=== PATIENT | male | born 1940 | race Caucasian/White ===

== ENCOUNTER 2018-05-18 14:33 | Outpatient (CLI) | payer BC ==
[~2018-05-18 14:33] MED LIST: Gadobenate Dimeglumine 529 MG/1 ML (20ML VIAL) ONE
--- NOTE | 2018-05-19 14:47 | MRI ---
MRI OF THE PELVIS WITH AND WITHOUT IV CONTRAST: INDICATION: History of elevated PSA without prior history of prostatic biopsy. TECHNIQUE: Multiplanar, multisequence MR images were obtained of the pelvis with and without contrast utilizing 16 cc of MultiHance. A prostate cancer specific protocol was utilized on a 3 [facility]anna magnet at [facility]. The examination was interpreted on a separate [facility] [employer] work [facility] for multiparametric valorie luation. FINDINGS: The prostate measures 5.2 x 5.2 x 4.5 cm giving an estimated prostatic volume of 63.27 cc. There is a focal region of diminished T2 signal intensity with associated restricted diffusion and an abnormal contrast enhancement involving the left prostatic apex measuring 1.3 cm. This is best seen on image 19 of series 6 and image 14 of series 7 and image 14 of series 8. No additional suspicious area of restricted diffusion is evident within the peripheral zone. No defi nite abnormal T2 signal abnormality is seen within the central transitional zone. There are multiple BPH nodules seen centrally and protruding into the base of the bladder. The visualized seminal vesi cles are normal-appearing. There are no overt changes to suggest neurovascular involvement. No path ologically enlarged lymph nodes are evident. There are bilateral fat-containing inguinal hernias. N o bone marrow signal abnormality is demonstrated. IMPRESSION: 1. PIRADS category 4 - high (clinically significant cancer is likely to be present). 2. There is a focal region of restricted diffusion with abnormal dynamic contrast enhancement involv ing the left apex of the prostate suspicious for clinically significant cancer. 3. No overt evidence to suggest the presence of neurovascular invasion or regional metastatic diseas e. POS: [facility]
== END 2018-05-18 14:34 | disposition home or self-care (01) ==
LOC: TBSIIMAG 14:33
PROVIDERS: ATTEND Urology
DX: R97.20 Elevated prostate specific antigen [PSA] (principal)
CPT/HCPCS: 72197; 82565; A9577

== ENCOUNTER 2018-08-07 02:52 | Outpatient (CLI) | payer BC ==
[2018-08-07 11:18] LABS: Hemoglobin 15.7 g/dL (14.0-18.0); Mean Corpuscular HGB CONC 32.9 g/dL (32.0-36.0); Mean Corpuscular Hemoglobin 32.1 pg (27.0-31.0); Mean Corpuscular Volume 97.5 fL (78.0-98.0); Mean Platelet Volume 8.2 fL (7.4-10.4); Platelet Count 183 thou/uL (130-400); RBC Distribution Width 12.2 % (11.5-14.5); White Blood Cell (WBC) Count 6.7 thou/uL (4.8-10.8)
[2018-08-07 11:21] LABS: Prothrombin Time 12.9 SEC (12.0-14.7)
[2018-08-07 11:35] LABS: Anion Gap 11 mmol/L (10-20); BUN (Urea Nitrogen) 16 mg/dL (8.4-25.7); Calc. Creatinine Clearance 0 mL/min (70-130); Carbon Dioxide 27 mmol/L (23-31); Chloride 103 mmol/L (98-107); Estimated GFR-MDRD 70; Glucose 86 mg/dL (83-110); Sodium 137 mmol/L (136-145)
[2018-08-07 11:45] LABS: Bilirubin Negative (Negative); Blood, Urine Negative (Negative); Clarity CLEAR (Clear); Glucose, Urine (Dipstick) Negative (Negative); Leukocyte Negative (Negative); Nitrite Negative (Negative); Protein, Urine (Dipstick) Negative (Neg-Trace); Specific Gravity, Urine 1.009 (1.002-1.036); Urobilinogen 0.2 mg/dL (0.2-1.0); pH, Urine 5.5 (5.0-9.0)
[2018-08-07 11:50] LABS: Bacteria/HPF None Seen HPF (None Seen); Hyaline Casts/LPF 0-3 HYALINE CAST LPF (0-3 Hyaline); RBC/HPF 0-3 HPF (0-3); Squamous Epithelial None Seen HPF (0-3); WBC/HPF None Seen HPF (0-3)
== END 2018-08-07 02:53 | disposition home or self-care (01) ==
LOC: LABBT 02:52
PROVIDERS: ATTEND Urology
DX: Z01.818 Encounter for other preprocedural examination (principal); R97.20 Elevated prostate specific antigen [PSA]; N40.1 Benign prostatic hyperplasia with lower urinary tract symptoms; R39.12 Poor urinary stream
CPT/HCPCS: 80048; 81001; 85027; 85610; 85730; 87086; 93005; 93010

== ENCOUNTER 2018-08-10 08:29 | Outpatient (CLI) | payer BC | END 2018-08-10 08:30 | disposition home or self-care (01) | LOC: TBSIIMAG 08:29 | PROVIDERS: ATTEND Urology | DX: Z53.9 Procedure and treatment not carried out, unspecified reason (principal) | CPT/HCPCS: 72197; A9577 ==

== ENCOUNTER 2018-08-13 05:59 | Day surgery (SDC) | payer BC ==
[2018-08-07 10:23] VITALS: BMI 25.2
[2018-08-13] MEDS ORDERED: Fentanyl 100 MCG/2 ML VIAL ONE (06:32)
[2018-08-13] MEDS ORDERED: cefTRIAXone\\ROCEPHIN 1 GM VIAL ONE (06:46)
[2018-08-13] MEDS ORDERED: Sodium Chloride 0.9% 100 ML ONE (06:46)
[2018-08-13] MEDS ORDERED: Midazolam HCl 2 mg/2 ml Vial ONE (06:52)
[2018-08-13] MEDS ORDERED: Ketamine 50 MG/ML (10ML VIAL) ONE (06:53)
[2018-08-13] MEDS ORDERED: Propofol 500 MG/50 ML VIAL ONE (06:53)
--- NOTE | 2018-08-13 12:33 | OP ---
DATE OF PROCEDURE: 08/13/2018 SERVICE: Urology. PREOPERATIVE DIAGNOSIS: Elevated PSA. POSTOPERATIVE DIAGNOSIS: Elevated PSA. PROCEDURE PERFORMED: MRI fusion biopsy. INDICATION FOR PROCEDURE: Mr. Fisher is a 77-year-old white male, who presented with an elevated PSA up to 16. He underwent an MRI, which demonstrated a BI-RADS 4 lesion at the left apex. After discussion of risks and benefits, he agreed to proceed forward with MRI fusion biopsy. DESCRIPTION OF PROCEDURE: After identification of armband and verification of consent, the patient was brought back to the operating room, where he underwent total intravenous anesthesia. He was placed in the left lateral decubitus position and positioned for the MRI fusion biopsy. The ultrasound transducer was placed in and after obtaining the sweep and all correct measurements, the fusion process was carried out. An ultrasound measurement was taken prior to starting the biopsy, which demonstrated MRI volume measurement that came out to 54.8 mL with a length of 4.9 cm, width of 4.8 cm, and height of 4.37 cm. There was some intravesical extension of the prostate moderately, but no obvious median lobe detectable. After the fusion process, the lesion was noted at the left apex and approximately 8 biopsies were taken in this region. This was sent off for as MRI-targeted biopsy. A standard 12 core biopsy was then performed in sextants for a traditional 12 core standard prostate biopsy. Upon completion, the bleeding was noted to be minimal. The patient was taken out of positioning, awakened, and taken to PACU for recovery in stable condition. COMPLICATIONS: None. ESTIMATED BLOOD LOSS: Minimal. RETAINED TUBES AND DRAINS: None. SPECIMENS: Prostate biopsies. DISPOSITION: The patient will be discharged home and follow up with me in approximately 1 to 2 weeks to discuss biopsy results. Job ID: [id number]
== END 2018-08-13 09:30 | disposition home or self-care (01) ==
LOC: SDC 05:59
PROVIDERS: ATTEND Urology
PROC: 0VB03ZX Excision of Prostate, Percutaneous Approach, Diagnostic (ICD-10-PCS; principal; 2018-08-13)
DX: C61 Malignant neoplasm of prostate (principal); N40.1 Benign prostatic hyperplasia with lower urinary tract symptoms; R39.12 Poor urinary stream; E89.0 Postprocedural hypothyroidism; Z79.899 Other long term (current) drug therapy; Z98.890 Other specified postprocedural states
CPT/HCPCS: 88305; J0696; J2250; J2704; J3010; J3490